=== PATIENT | male | born 1970 | race Two or more races ===

== ENCOUNTER 2022-11-09 13:48 | Observation (INO) | payer OTHER ==
[2022-11-09] MEDS ORDERED: SODIUM CHLORIDE 1,000 ML IV SCH (14:15)
[2022-11-09 14:28] LABS: BASO % 0.8 % (0-2.0); EOS % 1.8 % (0-4.5); HEMATOCRIT 43.3 % (35.4-49); LYMPH % 22.6 % (8-40); MCH 31.6 pg (25.7-33.7); MCHC 34.6 g/dl (32.0-35.9); MEAN CELL VOLUME 91.2 fl (80-96); MONO % 8.3 % (3.8-10.2); NEUT % 66.5 % (42.8-82.8); PLATELET COUNT 238 10^3/uL (134-434); RBC 4.75 M/mm3 (4.00-5.60); WHITE BLOOD COUNT 7.5 K/mm3 (4.0-10.0)
[2022-11-09 14:35] LABS: INR 0.97 (0.83-1.09); PROTHROMBIN TIME (PATIENT) 11.3 SEC (9.7-13.0)
[2022-11-09 14:37] LABS: ACTIVATED PTT 27.1 SECONDS (25.2-36.5)
[2022-11-09 14:44] LABS: POTASSIUM 4.3 mmol/L (3.5-5.1)
[2022-11-09 14:46] LABS: MAGNESIUM 2.3 mg/dL (1.8-2.4)
[2022-11-09 14:47] LABS: CALCIUM 9.8 mg/dL (8.5-10.1)
[2022-11-09 14:49] LABS: CREATININE 1.1 mg/dL (0.55-1.3)
[2022-11-09 14:51] LABS: TOT PROT 7.8 g/dl (6.4-8.2)
[2022-11-09 14:52] LABS: BILIRUBIN,TOTAL 0.7 mg/dL (0.2-1)
[2022-11-09] MEDS ORDERED: ATORVASTATIN CA 40 MG TABLET (FP) PO ONE (15:36)
[2022-11-09] MEDS ORDERED: ASPIRIN 81 MG CHEWABLE TABLETS PO ONE (15:36)
[2022-11-09] MEDS ORDERED: CLOPIDOGREL BISULFATE 75 MG TABLET (FP) PO ONE ×2 (15:43→15:49)
[2022-11-09] MEDS ORDERED: ATORVASTATIN CA 40 MG TABLET (FP) ONE (16:19)
[2022-11-09] MEDS ORDERED: ASPIRIN 81 MG CHEWABLE TABLETS ONE (16:19)
[2022-11-09] MEDS ORDERED: ALPRAZolam 1 MG TABLET PO PRN (20:33)
[2022-11-09] MEDS ORDERED: ALPRAZolam 1 MG TABLET ONE (20:37)
[2022-11-10] MEDS ORDERED: MELATONIN 5 MG TABLETS PO PRN (00:06)
[2022-11-10 01:02] VITALS: BMI 27.3
[2022-11-10] MEDS: ENOXAPARIN NA (PORCINE) 40 MG/0.4 ML DISP.SYRIN SQ SCH (09:32)
[2022-11-10] MEDS ORDERED: ASPIRIN 81 MG CHEWABLE TABLETS PO SCH (10:00)
[2022-11-10] MEDS: amLODIPine BESYLATE 5 MG TABLET (FP) PO SCH (11:16)
[2022-11-10] MEDS ORDERED: ZOLPIDEM TARTRATE 5 MG TABLET PO PRN (20:14)
[2022-11-10] MEDS ORDERED: ATORVASTATIN CA 80 MG TABLET (FP) PO SCH ×2 (22:00)
[2022-11-11 09:38] VITALS: BP 135/98; PULSE 68; RESP 18; TEMP 97.8
[2022-11-11] MEDS ORDERED: ASPIRIN COATED 81 MG TABLET.EC PO SCH (10:00)
[2022-11-11] MEDS: amLODIPine BESYLATE 5 MG TABLET (FP) PO SCH (10:01)
[2022-11-11] MEDS: ENOXAPARIN NA (PORCINE) 40 MG/0.4 ML DISP.SYRIN SQ SCH (10:01)
[2022-11-11 11:32] LABS: POTASSIUM 4.7 mmol/L (3.5-5.1)
[2022-11-11 11:35] LABS: ALBUMIN 3.9 g/dl (3.4-5.0); BLOOD UREA NITROGEN 10.4 mg/dL (7-18); CALCIUM 9.7 mg/dL (8.5-10.1); MAGNESIUM 2.5 mg/dL (1.8-2.4)
[2022-11-11 11:36] LABS: BASO % 0.7 % (0-2.0); EOS % 1.4 % (0-4.5); HEMATOCRIT 45.2 % (35.4-49); HEMOGLOBIN 15.2 GM/dL (11.7-16.9); MCH 30.8 pg (25.7-33.7); MCHC 33.7 g/dl (32.0-35.9); MEAN CELL VOLUME 91.4 fl (80-96); MEAN PLT VOLUME 8.4 fl (7.5-11.1); MONO % 9.2 % (3.8-10.2); NEUT % 69.7 % (42.8-82.8); PLATELET COUNT 244 10^3/uL (134-434); RBC 4.94 M/mm3 (4.00-5.60); WHITE BLOOD COUNT 8.2 K/mm3 (4.0-10.0)
[2022-11-11 11:38] LABS: CREATININE 0.9 mg/dL (0.55-1.3); PHOSPHOROUS 2.8 mg/dL (2.5-4.9)
[2022-11-11 11:40] LABS: BILIRUBIN,TOTAL 1.3 mg/dL (0.2-1)
== END 2022-11-11 13:27 | disposition home or self-care (01) ==
LOC: JER 13:48 → JERBED 15:55 → J4W 23:51
PROVIDERS: ADMIT Internal Medicine; ATTEND Internal Medicine
PROC: 3E023GC Introduction of Other Therapeutic Substance into Muscle, Percutaneous Approach (ICD-10-PCS; principal; 2022-11-09)
PROC: 3E0337Z Introduction of Electrolytic and Water Balance Substance into Peripheral Vein, Percutaneous Approach (ICD-10-PCS; 2022-11-09)
DX: I63.89 Other cerebral infarction (principal); E78.5 Hyperlipidemia, unspecified
CPT/HCPCS: 36415; 70450-TC; 70496-TC; 70498-TC; 70551-TC; 80053; 80061; 82550; 82553; 83036; 83735; 84100; 84484; 85025; 85610; 85730; 86850; 86900; 86901; 93005; 93010; 99285-25; G0378; Q9967

== ENCOUNTER 2023-10-11 04:32 | Day surgery (SDC) | payer OTHER ==
[2023-10-09 12:14] VITALS: BMI 26.6
[2023-10-11] MEDS ORDERED: MIDAZOLAM HCL 2 MG/2 ML SINGLE DOSE VIAL ONE (14:01)
[2023-10-11] MEDS ORDERED: PROPOFOL 40 ML ONE (14:01)
[2023-10-11] MEDS ORDERED: FENTANYL CITRATE/PF 50 MCG/ML VIAL ONE ×4 (14:01→16:13)
[2023-10-11] MEDS ORDERED: SUCCINYLCHOLINE CHLORIDE 200 MG/10 ML SYRINGE ONE (14:03)
[2023-10-11] MEDS ORDERED: DEXTROSE 5%-0.45% SALINE 1,000 ML IV SCH (14:30)
[2023-10-11] MEDS ORDERED: ceFAZolin SODIUM 1 GM VIAL ONE (14:34)
[2023-10-11] MEDS ORDERED: DEXAMETHASONE SOD PHOSPHATE 4 MG/1 ML VIAL ONE (14:34)
[2023-10-11] MEDS: ceFAZolin SODIUM 1 GM VIAL IVPB ONE (14:40)
[2023-10-11] MEDS ORDERED: ONDANSETRON 4 MG/2 ML VIAL ONE (14:54)
[2023-10-11] MEDS ORDERED: KETOROLAC TROMETHAMINE 30 MG/1 ML VIAL ONE (14:54)
[2023-10-11] MEDS ORDERED: ONDANSETRON 4 MG/2 ML VIAL IVPUSH PRN (15:11)
[2023-10-11] MEDS ORDERED: PROMETHAZINE HCL 25 MG/1 ML VIAL IVPB PRN (15:11)
[2023-10-11] MEDS ORDERED: oxyCODONE HCL 5 MG TABLET PO PRN ×2 (15:11)
[2023-10-11] MEDS ORDERED: ACETAMINOPHEN 1000 MG/100 ML BAG IVPB ONE (15:12)
[2023-10-11] MEDS ORDERED: LACTATED RINGERS SOLUTION 1,000 ML IV SCH (15:15)
[2023-10-11] MEDS: ACETAMINOPHEN 1000 MG/100 ML BAG IVPB ONE (15:30)
[2023-10-11 17:45] VITALS: RESP 20
[2023-10-11 18:30] VITALS: BP 134/80; PULSE 76; TEMP 97.9
== END 2023-10-11 18:25 | disposition home or self-care (01) ==
LOC: JASU-SURG 04:32
PROVIDERS: ATTEND Urology
PROC: 0T7D8DZ Dilation of Urethra with Intraluminal Device, Via Natural or Artificial Opening Endoscopic (ICD-10-PCS; principal; 2023-10-11 09:30)
DX: N40.1 Benign prostatic hyperplasia with lower urinary tract symptoms (principal); R39.12 Poor urinary stream; R39.14 Feeling of incomplete bladder emptying
CPT/HCPCS: C9740; L8699; 94760; J0131